=== PATIENT | male | born 1960 | race Caucasian/White ===

== ENCOUNTER 2023-02-01 07:03 | Day surgery (SDC) | payer MEDICAID, SELFPAY ==
[2023-01-31 09:57] VITALS: BMI 26.6
[2023-02-01] VITALS (13 sets, daily range): BP systolic 121–168; BP diastolic 62–92; PULSE 47–65; RESP 15–18; TEMP 36.1–36.6; O2SAT 94–99; BMI 27.3
[2023-02-01] MEDS: sodium chloride 0.9% 1,000 ML 30 ML IV (07:25)
--- NOTE | 2023-02-01 08:05 | ANES.PREANE2 ---
Pre-Anesthetic Assessment Height/Weight: Height 1.75 m Weight 83.915 kg Temp Pulse Resp BP Pulse Ox O2 Del Method 97.1 F L 65 18 158/91 96 Room Air 02/01/23 07:14 02/01/23 07:14 02/01/23 07:14 02/01/23 07:14 02/01/23 07:14 02/01/23 07:16 Preop Diagnosis: Left inguinal hernia Operation Date: 02/01/23 08:35 Proposed Procedures p [id number] Open left inguinal hernia with mesh K40.90(Left) - Quintin Alvarado MD Familial anesthetic complications: none Was Beta Bry taken within 24 hours: N/A Was Clonidine taken within 24 hours: N/A Last intake: Intake Last Liquid Date 01/31/23 Last Liquid Time 23:00 Last Solid Date 01/31/23 Last Solid Time 23:00 Social Tobacco and No alcohol Exam alert, oriented x 3, clear to auscultation bilaterally and regular rate & rhythm Airway Mallampati: Class III Dentition: other Anesthetic Plan ASA status: 1 Anesthesia: General Risk of > 500 ml blood loss (7ml/kg in children): No Medications/Allergies Home Medications Medication Instructions Recorded Confirmed Last Taken Type acetaminophen 325 mg tablet 325 mg PO QID PRN Pain 01/20/23 01/31/23 Unknown History (Tylenol) ibuprofen 200 mg tablet 200 mg PO Q6H PRN Pain 01/20/23 01/31/23 Unknown History Allergies Allergy/AdvReac Type Severity Reaction Status Date / Time No Known Allergies Allergy Unverified 01/20/23 10:16 Current Medications Generic Name Dose Route Start Last Admin Trade Name Beck PRN Reason Stop Dose Admin Sodium Chloride 1,000 mls @ 30 mls/hr 02/01/23 07:15 02/01/23 07:25 Sodium Chloride 0.9% IV 02/02/23 07:14 30 mls/hr .Q24H KAILA Administration PFSH Anesthesia Family History (Updated 01/20/23 @ 10:18 by MAURICE Liriano) Father Heart disease Social History (Updated 01/20/23 @ 10:18 by MAURICE Liriano) Smoking and tobacco status: current every day smoker cigarettes Alcohol intake: current Alcohol intake frequency: 0-2 Drinks per Day Alcohol type: beer Data Anesthesia Cardiac Studies: No Data to Display
--- NOTE | 2023-02-01 08:26 | W.PM.OPSUD ---
Surgery/Procedure H&P Update DATE OF PROCEDURE: February 01, 2023 DATE H&P PERFORMED: 12/21/22 CHANGES TO PREVIOUS DOCUMENTATION: Ptient was seen by me. no changes to physical exam. will proceed with left inguinal hernia repair with mesh. PREOP DIAGNOSIS: Left inguinal hernia PRIMARY INDICATION FOR PROCEDURE: left inguinal hernia PLANNED PROCEDURE: Operation Date: 02/01/23 08:35 Proposed Procedures p [id number] Open left inguinal hernia with mesh K40.90(Left) - Quintin Alvarado MD
[2023-02-01] MEDS: ceFAZolin 2,000 MG in sodium chloride 0.9% (plus) 50 ML 100 MG IV (08:39)
[2023-02-01] MEDS: BUPivacaine 0.25% INJ 10 mL INJECTION (09:20)
[2023-02-01] MEDS: lidocaine-epi 2% 20 mL INJ 10 ML INJECTION (09:21)
--- NOTE | 2023-02-01 11:00 | ANE.PACU2 ---
Inpatient post-anesthesia follow up: Airway intact: Yes Vital signs: Temperature 97.8 F Pulse Rate 50 Respiratory Rate 16 Blood Pressure 165/85 Pulse Oximetry 97 Oxygen Delivery Me thod Room Air Oxygen Flow Rate 6 Fraction of Inspir ed Oxygen Hydration adequate: Yes Nausea and vomiting: No Pain level: 1 Mental status: Baseline
[2023-02-01] MEDS: oxyCODONE-APAP 5-325 mg Tablet 1 TAB PO (11:22)
[2023-02-01] MEDS: ondansetron 2 mg/ML SDV 2 mL 4 MG IVP (11:26)
--- NOTE | 2023-02-01 15:28 | PM.OP ---
Operative Report Date of procedure: February 01, 2023 Pre-op diagnosis: Preop Diagnosis Left inguinal hernia Post-op diagnosis: Direct left inguinal hernia Post-op findings: Direct left inguinal hernia Procedure done: Open left inguinal hernia repair with mesh Implants: Polypropylene mesh Specimens removed/disposition: Cord lipoma, sent to pathology Surgeon: Quintin Alvarado MD Estimated blood loss: 10cc Complications: None Findings: Direct left inguinal hernia, left inguinal cord lipoma, otherwise normal anatomy. Brief History: This is a 62-year-old male who presented to my clinic complaining of a left inguinal hernia. Patient has a history of a previous right inguinal hernia repair with mesh via laparoscopic approach. After discussion of all the risk and benefits I offered open left inguinal hernia repair with mesh. All risk including the risk of bleeding, infection, chronic pain, recurrence were explained and consent was obtained. Procedure: Patient was brought into the OR. Was placed in the supine position. Anesthesia was given without complications. The left inguinal region was prepped and draped in the usual sterile fashion. A timeout was conducted. A 5 centimeter incision was made on the left inguinal region, the incision was deepened to the level of the external oblique upon neurosis. The aponeurosis of the external oblique was then opened from an area overlying the internal ring to the external ring. The ilioinguinal nerve was identified and preserved. careful blunt dissection was used to develop the planes and to separate the spermatic cord from the inguinal canal. The cord was then encircled on a Milner drain. The floor of the canal was noted to be disrupted, bulging of the preperitoneal fat was noted, consistent with a direct inguinal hernia. The cremaster muscle was opened anterior to the cord structures. The cord structures were carefully dissected, a cord lipoma was noted, ligated at the level of the internal ring and excised. No evidence of a indirect sac was noted. I then proceeded to plicate the floor of the inguinal canal by approximating the transversalis muscle to the inguinal ligament. I did this with 2 [id number] 2-0 Prolene sutures. The mesh was then placed on the floor of the canal and the tails of the mesh were used to encircle the spermatic cord recreating the internal ring. The mesh was fixed to the pubic tubercle and shelving edge of the inguinal ligament with 2-0 Prolene. I then fixed the mesh to the conjoined tendon with 2-0 Vicryl. The tails of the mesh were affixed together with 2-0 Prolene. Hemostasis was verified, local anesthesia the was injected into the tissue. We then closed the external oblique aponeurosis with 2-0 Vicryl. The wound was then closed in layers using 3-0 Vicryl for Derrick's and subcutaneous tissue and 4-0 Monocryl for the skin. Dermabond was placed. The patient was extubated and transferred to the PACU in stable condition. I was present and scrubbed in during the complete procedure.
== END 2023-02-01 12:01 | disposition home or self-care (01) ==
PROVIDERS: PCP Family Medicine; Visit Provider Surgery
PROC: (CPT 49505; principal; 2023-02-01 08:25)
DX: K40.90 Unilateral inguinal hernia, without obstruction or gangrene, not specified as recurrent (principal); D17.6 Benign lipomatous neoplasm of spermatic cord; F17.210 Nicotine dependence, cigarettes, uncomplicated
CPT/HCPCS: 49505; 88304; C1781; J0330; J0690; J1100; J1170; J2405; J2704; J2710; J3010; J3490; J7030

== ENCOUNTER 2024-01-23 09:02 | Outpatient (CLI) | payer MEDICARE, MEDICAID, SELFPAY ==
--- NOTE | 2024-01-23 09:06 | CT_ITS ---
WS: [id number] LDCT LUNG CANCER SCREENING HISTORY: HX OF TOBACCO USE TECHNIQUE: Axial imaging performed from the apices to 1 cm below the costophrenic angles. Coronal and sagittal reformats are submitted with axial MIP series. All CT scans at [facility] use at least one of these dose optimization techniques: automated exposure control; mA and/or kV adjustment per patient size (includes targeted exams where dose is matched to clinical indication); or iterativ e reconstruction. DLP: 72.09 mGy.cm DIvol: Mean CTDIvol: 1.20 (mGy) COMPARISON: None available. Diagnostic quality: Satisfactory Lungs: No suspicious pulmonary mass or pneumonia. RIGHT minor fissure nodule measuring 5 mm. There ar e a few benign cysts calcified granulomata. No endobronchial lesions. Heart: Normal size heart with no pericardial effusion.. Other findings: There are a few small mediastinal and hilar lymph nodes. Mild atherosclerosis aorta. Complex cystic mass associated with the superior pole the LEFT kidney needs to be further evaluated. This mass measures 6.0 x 5.0 cm and is inseparable from the pancreas also. CT/CT lung screening [id number] IMPRESSION: LUNG-RADS: 1S-Negative with Significant Findings FOLLOW UP: 12 Month: Continue annual screening with LDCT OTHER FINDINGS (S MODIFIER): Complex cystic mass associated with superior pole LEFT kidney abuts the pancreas. Recommend renal mass CT protocol follow-up at t his time. Renal cell neoplasm needs to be excluded.
== END 2024-01-23 09:03 | disposition home or self-care (01) ==
LOC: RAD 09:03
PROVIDERS: PCP Family Medicine; Visit Provider Family Medicine
DX: Z12.2 Encounter for screening for malignant neoplasm of respiratory organs (principal); Z87.891 Personal history of nicotine dependence; R91.1 Solitary pulmonary nodule; J84.10 Pulmonary fibrosis, unspecified; N28.1 Cyst of kidney, acquired
CPT/HCPCS: 71271

== ENCOUNTER 2024-01-26 14:24 | Outpatient (CLI) | payer MEDICARE, MEDICAID, SELFPAY ==
--- NOTE | 2024-01-26 14:26 | CT_ITS ---
WS: [id number] CT ABDOMEN AND PELVIS WITH AND WITHOUT CONTRAST HISTORY: CYST OF KIDNEY TECHNIQUE: Unenhanced 5 mm axial imaging first performed through the abdomen. Post contrast imaging t hrough the abdomen and pelvis. Oral contrast has not been provided. Sagittal and coronal reformats a re submitted. All CT scans at [facility] use at least one of these dose optimization techniqu es: automated exposure control; mA and/or kV adjustment per patient size (includes targeted exams whe re dose is matched to clinical indication); or iterative reconstruction. CONTRAST: Omnipaque 350; 95 mL IV. DLP: 864.47 mGy.cm COMPARISON: Lung screening CT 01/23/2024 Lung bases are clear. Normal size heart. Small hiatal hernia. RIGHT kidney: Normal size with no calcification. Too small to characterize hypodensity mid renal evens ex. No solid mass. LEFT kidney: Normal size kidney. Previously described mass involving the superior pole the LEFT kidne y corresponds to a lobulated multiloculated cyst measuring 5.5 x 6.8 x 5.0 cm. This is probably sever al cysts together or a cyst with thin septations. There is no abnormal enhancement. No solid componen t. There is a smaller cyst in the cortex of the lower pole measuring 1.0 x 1.2 cm. No calcifications. Liver and spleen are negative. Negative gallbladder. Normal portal vein. Normal pancreas. No adrenal mass. Moderate atherosclerosis aorta. No aneurysm. Nondistended stomach. No small bowel obstruction. Mild distal colon diverticulosis without acute dive rticulitis. No adenopathy or ascites. Urinary bladder is well distended. Prostate gland is enlarged and heterogen eous encroaching into the bladder. CT/CT abdomen pelvis wo/w [id number] IMPRESSION: 1. Lobulated cystic mass arise from the superior pole of the LEFT kidney measu res 5.5 x 6.8 x 5.0 cm. This is a slightly complex cyst as there are thin septa tions present but no enhancement. This corresponds to the indeterminate mass se en on recent lung screening CT. 2. No renal obstruction or solid mass identified. 3. Prostate enlargement encroaching into the bladder. 4. Sigmoid diverticulosis without acute diverticulitis.
[2024-01-26 15:26] LABS: Blood Urea Nitrogen 13 mg/dL (8-23)
[2024-01-26] MEDS: iohexol 350 mg/mL 500 mL Btl (per mL) IV (15:41)
== END 2024-01-26 14:25 | disposition home or self-care (01) ==
LOC: RAD 14:24
PROVIDERS: PCP Family Medicine; Visit Provider Family Medicine
DX: N28.1 Cyst of kidney, acquired (principal); N40.0 Benign prostatic hyperplasia without lower urinary tract symptoms; K57.90 Diverticulosis of intestine, part unspecified, without perforation or abscess without bleeding
CPT/HCPCS: 74178; 82565; 84520; Q9967